=== PATIENT | male | born 1965 | race African-American/Black ===

== ENCOUNTER 2021-06-20 23:07 | Emergency (ER) | payer MEDICAID, OTHER ==
[~2021-06-20] VITALS: Ht 180.3 cm; Wt 110.2 kg
[2021-06-21 04:53] VITALS: BP 163/102
[2021-06-21] MEDS ORDERED: METHOCARBAMOL 500 MG TAB PO ONE (05:00)
[2021-06-21] MEDS ORDERED: KETOROLAC TROMETH 30 MG/ML 1ML VIAL IM ONE (05:00)
[2021-06-21] MEDS ORDERED: IBUP800T27 PO (05:32)
[2021-06-21] MEDS ORDERED: METH500T22 PO (05:32)
== END 2021-06-21 06:15 | disposition home or self-care (01) ==
LOC: ER 23:07
DX: S66.912A Strain of unspecified muscle, fascia and tendon at wrist and hand level, left hand, initial encounter (principal); S16.1XXA Strain of muscle, fascia and tendon at neck level, initial encounter; Z79.1 Long term (current) use of non-steroidal anti-inflammatories (NSAID); Z79.899 Other long term (current) drug therapy; Z91.013 Allergy to seafood; V43.52XA Car driver injured in collision with other type car in traffic accident, initial encounter; Y93.89 Activity, other specified; Y92.410 Unspecified street and highway as the place of occurrence of the external cause; Y99.8 Other external cause status
CPT/HCPCS: 70450; 71045; 72125; 72170; 73030; 73130; 96372; J1885